=== PATIENT | female | born 1950 | race Caucasian/White ===

== ENCOUNTER 2016-07-20 21:14 | Observation (INO) | payer BC, OTHER ==
[~2016-07-20] VITALS: Ht 157.5 cm; Wt 92.6 kg
[~2016-07-20 21:14] MED LIST: ASMANEX TW200 MICRO1 IH; ECOTRIN PO; FISH OIL OMEGA1 EACH PO; IBUPROFEN400 MG PO; LEVOTHYROXINE112 MCG PO; MELOXICAM7.5 MG PO; MOVE FREE JOIN1 EACH PO; OMEPRAZOLE40 M1 PO; OSTEO BI-FLEX1 EAC2 PO; PERCOCET 5/31 TABLET PO; PROTONIX40 MG PO; PROVENTIL HFA6.7 GM IH; THERA-D2000 UNIT PO; VITAMIN D2000 UNI1 PO; VOLTAREN 1% GE100 GM TP
[2016-07-20 21:40] LABS: HEMATOCRIT 37.1 % (36.0-46.0); MCH 28.8 PG (29.0-34.0); MCHC 32.9 G/DL (30.0-36.0); MCV 87.5 FL (83-99); MEAN PLAT.VOLUME 10.5 uM^3 (9.5-12.4); PLATELET COUNT 272 K/uL (156-360); RBC DIS.WIDTH-CV 13.5 % (11.8-14.6); RED BLOOD COUNT 4.24 M/uL (3.80-5.20); WHITE BLOOD COUNT 8.3 K/uL (4.1-10.2)
[2016-07-20 21:56] LABS: CHLORIDE 109 mEq/L (99-109); POTASSIUM 3.7 mEq/L (3.7-5.4)
[2016-07-20 21:57] LABS: SODIUM 142 mEq/L (136-147)
[2016-07-20 21:58] LABS: GLUCOSE 129 mg/dL (70-99)
[2016-07-20 22:00] LABS: ANION GAP 12 MEQ/L (2-14)
[2016-07-20 22:02] LABS: GFR ESTIMATE (CALCULATED) > 59 mL/min/
[2016-07-20 22:03] LABS: UREA NITROGEN (BUN) 20 mg/dL (9-23)
[2016-07-20] MEDS ORDERED: FISH OIL300 MG PO (22:12)
[2016-07-20] MEDS ORDERED: LO-DOSE ASPIRIN81 M2 PO (22:12)
[2016-07-20] MEDS ORDERED: MELOXICAM7.5 MG PO (22:12)
[2016-07-20] MEDS ORDERED: PROVENTIL,2.5 MG/3 M IH (22:13)
[2016-07-20 22:19] LABS: TROP-I INTERPRETATION NEGATIVE; TROPONIN-I < 0.01 ng/mL (0.0-0.30)
[2016-07-21 00:21] VITALS: BP 156/72
[2016-07-21 04:30] LABS: HEMATOCRIT 37.3 % (36.0-46.0); MCH 28.4 PG (29.0-34.0); MCHC 32.2 G/DL (30.0-36.0); MCV 88.4 FL (83-99); MEAN PLAT.VOLUME 10.5 uM^3 (9.5-12.4); PLATELET COUNT 246 K/uL (156-360); RBC DIS.WIDTH-CV 13.5 % (11.8-14.6); RBC DIS.WIDTH-SD 43.8 % (39-53); RED BLOOD COUNT 4.22 M/uL (3.80-5.20); WHITE BLOOD COUNT 7.6 K/uL (4.1-10.2)
[2016-07-21 04:33] VITALS: BP 136/64
[2016-07-21 04:44] LABS: CHLORIDE 108 mEq/L (99-109); POTASSIUM 3.7 mEq/L (3.7-5.4); SODIUM 143 mEq/L (136-147)
[2016-07-21 04:46] LABS: GLUCOSE 97 mg/dL (70-99)
[2016-07-21 04:48] LABS: ANION GAP 10 MEQ/L (2-14); TOTAL BILIRUBIN 0.6 mg/dL (0.0-1.0)
[2016-07-21 04:50] LABS: ALKALINE PHOSPHATASE 69 IU/L (3-129); GFR ESTIMATE (CALCULATED) > 59 mL/min/
[2016-07-21 04:51] LABS: UREA NITROGEN (BUN) 17 mg/dL (9-23)
[2016-07-21 04:55] LABS: TROP-I INTERPRETATION NEGATIVE; TROPONIN-I < 0.01 ng/mL (0.0-0.30)
[2016-07-21 08:51] VITALS: BP 137/77
[2016-07-21 10:20] LABS: TROP-I INTERPRETATION NEGATIVE; TROPONIN-I < 0.01 ng/mL (0.0-0.30)
[2016-07-21 12:11] VITALS: BP 178/74
[2016-07-21] MEDS ORDERED: LOPRESSOR25 MG PO (16:32)
[2016-07-21 16:46] VITALS: BP 146/78
== END 2016-07-21 17:23 | disposition home or self-care (01) ==
LOC: EME 21:14 → EDOF 22:38 → 5WEST 22:38 → EDOF 22:38 → 5WEST 07-21 00:03
PROVIDERS: Internal Medicine
DX: R07.89 Other chest pain (principal); I49.3 Ventricular premature depolarization; I45.10 Unspecified right bundle-branch block; E03.9 Hypothyroidism, unspecified; K21.9 Gastro-esophageal reflux disease without esophagitis; E78.00 Pure hypercholesterolemia, unspecified; E78.5 Hyperlipidemia, unspecified; J45.909 Unspecified asthma, uncomplicated; E66.9 Obesity, unspecified; M19.90 Unspecified osteoarthritis, unspecified site
CPT/HCPCS: 71020; 74176; 78582; 80048; 80053; 84484; 85027; 93005; 99202; 99281; 99285; A9540; A9567; G0378; J7030; S0028